=== PATIENT | male | born 1960 | race Caucasian/White ===

== ENCOUNTER 2022-04-13 09:41 | Inpatient (IN) | payer OTHER ==
[2022-04-13 10:10] VITALS: BMI 24.2
[2022-04-13] MEDS ORDERED: LORazepam 1 MG TABLET PO PRN (10:50)
[2022-04-13] MEDS ORDERED: MAG HYDROX/AL HYDROX/SIMETH 30 ML UNIT-DOSE CUP PO PRN (10:50)
[2022-04-13] MEDS ORDERED: DICYCLOMINE HCL 10 MG CAPSULE PO PRN (10:50)
[2022-04-13] MEDS ORDERED: LORazepam 2 MG TABLET PO ONE (10:50)
[2022-04-13] MEDS ORDERED: BISMUTH SUBSALICYLATE 524 MG/30 ML PO PRN (10:50)
[2022-04-13] MEDS ORDERED: MAGNESIUM CITRATE 300 ML BOTTLE PO PRN (10:50)
[2022-04-13] MEDS ORDERED: MAGNESIUM HYDROX 2400MG/30ML ORAL SUSPENSION 30 ML CUP PO PRN (10:50)
[2022-04-13] MEDS ORDERED: NALOXONE HCL (KLOXXADO) 8 MG SPRAY NS PRN (10:50)
[2022-04-13] MEDS ORDERED: BENZOCAINE/MENTHOL (CHLORASEPTIC ) LOZENGE MM PRN (10:50)
[2022-04-13] MEDS ORDERED: ACETAMINOPHEN 325 MG TABLET (FP) PO PRN ×2 (10:50)
[2022-04-13] MEDS ORDERED: ONDANSETRON *ODT* 4 MG TABLET SL PRN (10:50)
[2022-04-13] MEDS ORDERED: METHOCARBAMOL 500 MG TABLET PO PRN (10:50)
[2022-04-13] MEDS ORDERED: NICOTINE 10 MG CARTRIDGE (INHALER) IH PRN (10:50)
[2022-04-13] MEDS ORDERED: metFORMIN HCL 500 MG TABLET (FP) PO ONE (14:36)
[2022-04-13] MEDS ORDERED: LISINOPRIL 10 MG TABLET PO ONE (14:37)
[2022-04-13] MEDS ORDERED: LORazepam 1 MG TABLET PO ONE (14:44)
[2022-04-13] MEDS: PANTOPRAZOLE 40 MG TABLET PO SCH (14:54)
[2022-04-13] MEDS: NICOTINE 21 MG/24 HOURS TOPICAL PATCH TD SCH (14:57)
[2022-04-13] MEDS: metFORMIN HCL 500 MG TABLET (FP) PO SCH (14:57)
[2022-04-13] MEDS: LISINOPRIL 10 MG TABLET PO SCH (14:57)
[2022-04-13] MEDS: INSULIN SLIDING SCALE (NOVOLOG) 1 VIAL SQ SCH ×2 (14:58→18:05)
[2022-04-13] MEDS ORDERED: INSULIN SLIDING SCALE (NOVOLOG) 1 VIAL SQ ONE (15:01)
[2022-04-13] MEDS: LORazepam 2 MG TABLET PO SCH ×2 (18:06→22:16)
[2022-04-13] MEDS ORDERED: MELATONIN 5 MG TABLETS PO SCH (22:00)
[2022-04-13] MEDS: ATORVASTATIN CA 20 MG TABLET (FP) PO SCH (22:14)
[2022-04-13] MEDS: THIAMINE HCL 100 MG TABLET (FP) PO SCH (22:14)
[2022-04-13] MEDS: traZODone HCL 50 MG TABLET (FP) PO SCH (22:14)
[2022-04-14] MEDS: LORazepam 2 MG TABLET PO SCH ×4 (05:26→22:30)
[2022-04-14] MEDS: INSULIN SLIDING SCALE (NOVOLOG) 1 VIAL SQ SCH ×3 (06:46→17:09)
[2022-04-14] MEDS: PRENATAL VITAMINS W/ FOLIC ACID TABLET (FP) PO SCH (10:38)
[2022-04-14] MEDS: PANTOPRAZOLE 40 MG TABLET PO SCH (10:38)
[2022-04-14] MEDS: LISINOPRIL 10 MG TABLET PO SCH (10:38)
[2022-04-14] MEDS: metFORMIN HCL 500 MG TABLET (FP) PO SCH (10:38)
[2022-04-14] MEDS: SERTRALINE HCL 50 MG TABLET (FP) PO SCH (10:38)
[2022-04-14] MEDS: NICOTINE 21 MG/24 HOURS TOPICAL PATCH TD SCH (10:39)
[2022-04-14 12:03] LABS: BLOOD UREA NITROGEN 15.8 mg/dL (7-18); CALCIUM 8.2 mg/dL (8.5-10.1)
[2022-04-14 12:07] LABS: BILIRUBIN,TOTAL 1.2 mg/dL (0.2-1); CREATININE 0.9 mg/dL (0.55-1.3); TOT PROT 5.5 g/dl (6.4-8.2)
[2022-04-14 12:32] LABS: HEMATOCRIT 35.8 % (35.4-49); HEMOGLOBIN 11.9 GM/dL (11.7-16.9); MCH 31.6 pg (25.7-33.7); MCHC 33.3 g/dl (32.0-35.9); MEAN CELL VOLUME 94.8 fl (80-96); PLATELET COUNT 180 10^3/uL (134-434); RBC 3.77 M/mm3 (4.00-5.60); RDW 13.2 % (11.9-15.9); WHITE BLOOD COUNT 3.6 K/mm3 (4.0-10.0)
[2022-04-14] MEDS: ATORVASTATIN CA 20 MG TABLET (FP) PO SCH (22:30)
[2022-04-14] MEDS: THIAMINE HCL 100 MG TABLET (FP) PO SCH (22:30)
[2022-04-14] MEDS: traZODone HCL 50 MG TABLET (FP) PO SCH (22:30)
[2022-04-15] MEDS: LORazepam 1 MG TABLET PO SCH ×4 (05:44→22:14)
[2022-04-15] MEDS: INSULIN SLIDING SCALE (NOVOLOG) 1 VIAL SQ SCH ×3 (06:31→16:37)
[2022-04-15] MEDS: PANTOPRAZOLE 40 MG TABLET PO SCH (10:21)
[2022-04-15] MEDS: SERTRALINE HCL 50 MG TABLET (FP) PO SCH (10:21)
[2022-04-15] MEDS: LISINOPRIL 10 MG TABLET PO SCH (10:21)
[2022-04-15] MEDS: PRENATAL VITAMINS W/ FOLIC ACID TABLET (FP) PO SCH (10:21)
[2022-04-15] MEDS: NICOTINE 21 MG/24 HOURS TOPICAL PATCH TD SCH (10:22)
[2022-04-15] MEDS: metFORMIN HCL 500 MG TABLET (FP) PO SCH ×2 (10:34→18:19)
[2022-04-15] MEDS: traZODone HCL 50 MG TABLET (FP) PO SCH (22:13)
[2022-04-15] MEDS: THIAMINE HCL 100 MG TABLET (FP) PO SCH (22:14)
[2022-04-15] MEDS: ATORVASTATIN CA 20 MG TABLET (FP) PO SCH (22:14)
[2022-04-15] MEDS: LOPERAMIDE HCL 2 MG CAPSULE PO PRN (22:16)
[2022-04-16] MEDS ORDERED: LORazepam 0.5 MG TABLET PO PRN
[2022-04-16] MEDS: LOPERAMIDE HCL 2 MG CAPSULE PO PRN ×2 (04:16→10:36)
[2022-04-16] MEDS: LORazepam 0.5 MG TABLET PO SCH ×4 (05:55→22:07)
[2022-04-16] MEDS: INSULIN SLIDING SCALE (NOVOLOG) 1 VIAL SQ SCH ×3 (06:11→17:22)
[2022-04-16] MEDS: metFORMIN HCL 500 MG TABLET (FP) PO SCH ×2 (06:12→17:50)
[2022-04-16] MEDS ORDERED: INSULIN SLIDING SCALE (NOVOLOG) 1 VIAL SQ ONE (06:27)
[2022-04-16] MEDS: PRENATAL VITAMINS W/ FOLIC ACID TABLET (FP) PO SCH (10:34)
[2022-04-16] MEDS: LISINOPRIL 10 MG TABLET PO SCH (10:34)
[2022-04-16] MEDS: PANTOPRAZOLE 40 MG TABLET PO SCH (10:34)
[2022-04-16] MEDS: SERTRALINE HCL 50 MG TABLET (FP) PO SCH (10:34)
[2022-04-16] MEDS: NICOTINE 21 MG/24 HOURS TOPICAL PATCH TD SCH (10:36)
[2022-04-16 11:08] LABS: URINE APPEARANCE CLEAR; URINE BILIRUBIN NEGATIVE (NEGATIVE); URINE COLOR YELLOW; URINE GLUCOSE (UA) 3+ (NEGATIVE); URINE KETONE NEGATIVE (NEGATIVE); URINE LEUK ESTERASE NEGATIVE (NEGATIVE); URINE NITRITE NEGATIVE (NEGATIVE); URINE PROTEIN NEGATIVE (NEGATIVE); URINE UROBILINOGEN 0.2 mg/dL (0.2-1.0)
[2022-04-16] MEDS: THIAMINE HCL 100 MG TABLET (FP) PO SCH (22:06)
[2022-04-16] MEDS: ATORVASTATIN CA 20 MG TABLET (FP) PO SCH (22:06)
[2022-04-16] MEDS: traZODone HCL 50 MG TABLET (FP) PO SCH (22:06)
[2022-04-17] MEDS ORDERED: LORazepam 0.5 MG TABLET PO ONE (05:00)
[2022-04-17] MEDS: metFORMIN HCL 500 MG TABLET (FP) PO SCH ×2 (06:19→17:44)
[2022-04-17] MEDS: INSULIN SLIDING SCALE (NOVOLOG) 1 VIAL SQ SCH ×4 (06:20→23:10)
[2022-04-17] MEDS: SERTRALINE HCL 50 MG TABLET (FP) PO SCH (11:25)
[2022-04-17] MEDS: PRENATAL VITAMINS W/ FOLIC ACID TABLET (FP) PO SCH (11:26)
[2022-04-17] MEDS: NICOTINE 21 MG/24 HOURS TOPICAL PATCH TD SCH (11:26)
[2022-04-17] MEDS: PANTOPRAZOLE 40 MG TABLET PO SCH (11:26)
[2022-04-17] MEDS: LISINOPRIL 10 MG TABLET PO SCH (11:26)
[2022-04-17 13:00] VITALS: TEMP 97.5
[2022-04-17 14:21] VITALS: BP 113/74; PULSE 119; RESP 20
[2022-04-17] MEDS: traZODone HCL 50 MG TABLET (FP) PO SCH (23:10)
[2022-04-17] MEDS: ATORVASTATIN CA 20 MG TABLET (FP) PO SCH (23:10)
[2022-04-17] MEDS: THIAMINE HCL 100 MG TABLET (FP) PO SCH (23:11)
== END 2022-04-17 14:45 | disposition short-term general hospital (02) | DRG 775 ==
LOC: YASAS 09:41 → Y3N 12:31
PROVIDERS: ADMIT Allergy & Immunology; ATTEND Surgery
PROC: HZ2ZZZZ Detoxification Services for Substance Abuse Treatment (ICD-10-PCS; principal; 2022-04-13)
DX: F10.230 Alcohol dependence with withdrawal, uncomplicated (principal); F19.280 Other psychoactive substance dependence with psychoactive substance-induced anxiety disorder; F19.282 Other psychoactive substance dependence with psychoactive substance-induced sleep disorder; F19.24 Other psychoactive substance dependence with psychoactive substance-induced mood disorder; F17.210 Nicotine dependence, cigarettes, uncomplicated; F41.9 Anxiety disorder, unspecified; E11.65 Type 2 diabetes mellitus with hyperglycemia; Z79.84 Long term (current) use of oral hypoglycemic drugs; E78.5 Hyperlipidemia, unspecified; I10 Essential (primary) hypertension; K21.9 Gastro-esophageal reflux disease without esophagitis; I95.1 Orthostatic hypotension; M06.9 Rheumatoid arthritis, unspecified; M25.562 Pain in left knee; M54.50 Low back pain, unspecified; G89.29 Other chronic pain; R42 Dizziness and giddiness
CPT/HCPCS: 36415; 80053; 81003; 82962; 85027; 86780; 87811; 93005; 93010; C9803-CS; U0003; U0005

== ENCOUNTER 2022-04-17 15:12 | Emergency (ER) | payer OTHER ==
[2022-04-17 15:32] VITALS: RESP 19; BMI 23.8
[2022-04-17] MEDS ORDERED: SODIUM CHLORIDE 1,000 ML IV STA (16:37)
[2022-04-17 18:10] LABS: BASO % 0.1 % (0-2.0); EOS % 1.3 % (0-4.5); HEMATOCRIT 37.2 % (35.4-49); HEMOGLOBIN 12.9 GM/dL (11.7-16.9); LYMPH % 11.4 % (8-40); MCH 32.7 pg (25.7-33.7); MCHC 34.6 g/dl (32.0-35.9); MEAN CELL VOLUME 94.5 fl (80-96); MEAN PLT VOLUME 8.1 fl (7.5-11.1); MONO % 9.6 % (3.8-10.2); NEUT % 77.6 % (42.8-82.8); PLATELET COUNT 148 10^3/uL (134-434); RBC 3.94 M/mm3 (4.00-5.60); RDW 13.4 % (11.9-15.9); WHITE BLOOD COUNT 6.6 K/mm3 (4.0-10.0)
[2022-04-17 18:17] LABS: INR 0.93 (0.83-1.09); PROTHROMBIN TIME (PATIENT) 10.7 SEC (9.7-13.0)
[2022-04-17 18:20] LABS: ACTIVATED PTT 30.2 SECONDS (25.2-36.5)
[2022-04-17 18:36] LABS: ALBUMIN 3.4 g/dl (3.4-5.0); BLOOD UREA NITROGEN 14.4 mg/dL (7-18)
[2022-04-17 18:39] LABS: CREATININE 1.1 mg/dL (0.55-1.3)
[2022-04-17 18:41] LABS: BILIRUBIN,TOTAL 0.2 mg/dL (0.2-1); TOT PROT 6.5 g/dl (6.4-8.2)
[2022-04-17 18:43] LABS: CALCIUM 10.5 mg/dL (8.5-10.1)
[2022-04-17 19:46] VITALS: BP 160/97; PULSE 71; TEMP 98
== END 2022-04-17 20:14 | disposition short-term general hospital (02) ==
LOC: JER 15:12
PROC: 3E0337Z Introduction of Electrolytic and Water Balance Substance into Peripheral Vein, Percutaneous Approach (ICD-10-PCS; principal; 2022-04-17)
DX: R42 Dizziness and giddiness (principal)
CPT/HCPCS: 36415; 71046-TC-FY; 80053; 84484; 85025; 85610; 85730; 93005; 93010; 99285-25

== ENCOUNTER 2023-05-03 09:39 | Inpatient (IN) | payer OTHER ==
[2023-05-03 10:46] VITALS: BMI 25.4
[2023-05-03] MEDS ORDERED: BENZONATATE 200 MG CAPSULE PO PRN (11:24)
[2023-05-03] MEDS ORDERED: MAG HYDROX/AL HYDROX/SIMETH 30 ML UNIT-DOSE CUP PO PRN (11:24)
[2023-05-03] MEDS ORDERED: NICOTINE POLACRILEX 2 MG GUM BUC PRN (11:24)
[2023-05-03] MEDS ORDERED: BISMUTH SUBSALICYLATE 524 MG/30 ML PO PRN (11:24)
[2023-05-03] MEDS ORDERED: guaiFENesin 600 MG TABLET.ER (FP) PO PRN (11:24)
[2023-05-03] MEDS ORDERED: ONDANSETRON *ODT* 4 MG TABLET SL PRN (11:24)
[2023-05-03] MEDS ORDERED: MAGNESIUM HYDROX 2400MG/30ML ORAL SUSPENSION 30 ML CUP PO PRN (11:24)
[2023-05-03] MEDS ORDERED: DICYCLOMINE HCL 10 MG CAPSULE PO PRN (11:24)
[2023-05-03] MEDS ORDERED: ACETAMINOPHEN 325 MG TABLET (FP) PO PRN (11:24)
[2023-05-03] MEDS ORDERED: BENZOCAINE/MENTHOL (CHLORASEPTIC ) LOZENGE MM PRN (11:24)
[2023-05-03] MEDS ORDERED: POLYETHYLENE GLYCOL (HEALTHYLAX) 3350 17 GM PACKET PO PRN (11:24)
[2023-05-03] MEDS ORDERED: NALOXONE HCL 0.4 MG/ML VIAL IM PRN (11:24)
[2023-05-03] MEDS ORDERED: NALOXONE HCL (KLOXXADO) 8 MG SPRAY NS PRN (11:24)
[2023-05-03] MEDS ORDERED: LOPERAMIDE HCL 2 MG CAPSULE PO PRN (11:24)
[2023-05-03] MEDS ORDERED: chlordiazePOXIDE HCL 25 MG CAPSULE PO ONE (11:24)
[2023-05-03] MEDS ORDERED: ARTIFICIAL TEARS (POLYVINYL ALCOHOL) OPTH DROPS OU PRN (11:27)
[2023-05-03] MEDS ORDERED: PANTOPRAZOLE 40 MG TABLET PO SCH (12:00)
[2023-05-03] MEDS ORDERED: chlordiazePOXIDE HCL 25 MG CAPSULE ONE (12:16)
[2023-05-03] MEDS ORDERED: METHOCARBAMOL 500 MG TABLET ONE (12:17)
[2023-05-03] MEDS ORDERED: LISINOPRIL 10 MG TABLET ONE (12:17)
[2023-05-03] MEDS: METHOCARBAMOL 500 MG TABLET PO PRN ×2 (12:20→22:31)
[2023-05-03] MEDS: LISINOPRIL 10 MG TABLET PO SCH (12:20)
[2023-05-03] MEDS ORDERED: NICOTINE 14 MG/24 HOURS TOPICAL PATCH TD ONE (12:44)
[2023-05-03] MEDS: NICOTINE 14 MG/24 HOURS TOPICAL PATCH TD SCH (12:47)
[2023-05-03] MEDS: PANTOPRAZOLE 40 MG TABLET PO SCH (13:01)
[2023-05-03] MEDS: LIDOCAINE 5% TOPICAL PATCH TP SCH (13:05)
[2023-05-03] MEDS: INSULIN SLIDING SCALE (NOVOLOG) 1 VIAL SQ SCH ×2 (16:49→22:28)
[2023-05-03] MEDS: metFORMIN HCL 500 MG TABLET (FP) PO SCH (16:56)
[2023-05-03] MEDS: chlordiazePOXIDE HCL 25 MG CAPSULE PO SCH ×2 (16:56→22:30)
[2023-05-03] MEDS: chlordiazePOXIDE HCL 25 MG CAPSULE PO PRN (19:02)
[2023-05-03] MEDS ORDERED: MELATONIN 5 MG TABLETS PO SCH (22:00)
[2023-05-03] MEDS: THIAMINE HCL 100 MG TABLET (FP) PO SCH (22:29)
[2023-05-03] MEDS: LIDOCAINE PATCH REMOVAL MC SCH (22:30)
[2023-05-03] MEDS: ATORVASTATIN CA 20 MG TABLET (FP) PO SCH (22:30)
[2023-05-03] MEDS ORDERED: INSULIN (NOVOLOG) ASPART 100 UNITS/ML 10ML VIAL ONE (22:51)
[2023-05-04] MEDS: chlordiazePOXIDE HCL 25 MG CAPSULE PO SCH ×4 (05:50→22:04)
[2023-05-04] MEDS: metFORMIN HCL 500 MG TABLET (FP) PO SCH ×2 (06:06→17:23)
[2023-05-04] MEDS: INSULIN SLIDING SCALE (NOVOLOG) 1 VIAL SQ SCH ×4 (06:44→22:03)
[2023-05-04] MEDS: IBUPROFEN 400 MG TABLET (FP) PO PRN ×2 (06:45→15:20)
[2023-05-04] MEDS: METHOCARBAMOL 500 MG TABLET PO PRN ×3 (06:45→19:05)
[2023-05-04] MEDS: LIDOCAINE 5% TOPICAL PATCH TP SCH (10:11)
[2023-05-04] MEDS: NICOTINE 14 MG/24 HOURS TOPICAL PATCH TD SCH (10:12)
[2023-05-04] MEDS: PANTOPRAZOLE 40 MG TABLET PO SCH (10:12)
[2023-05-04] MEDS: PRENATAL VITAMINS W/ FOLIC ACID TABLET (FP) PO SCH (10:12)
[2023-05-04] MEDS: SERTRALINE HCL 50 MG TABLET (FP) PO SCH (10:12)
[2023-05-04] MEDS: LISINOPRIL 10 MG TABLET PO SCH (10:12)
[2023-05-04] MEDS ORDERED: INSULIN (NOVOLOG) ASPART 100 UNITS/ML 10ML VIAL ONE ×2 (11:43→21:44)
[2023-05-04] MEDS: chlordiazePOXIDE HCL 25 MG CAPSULE PO PRN (15:20)
[2023-05-04] MEDS: ATORVASTATIN CA 20 MG TABLET (FP) PO SCH (22:03)
[2023-05-04] MEDS: THIAMINE HCL 100 MG TABLET (FP) PO SCH (22:04)
[2023-05-04] MEDS: LIDOCAINE PATCH REMOVAL MC SCH (22:04)
[2023-05-04] MEDS: traZODone HCL 50 MG TABLET (FP) PO SCH (22:04)
[2023-05-05] MEDS: chlordiazePOXIDE HCL 25 MG CAPSULE PO SCH ×4 (05:08→22:23)
[2023-05-05] MEDS: METHOCARBAMOL 500 MG TABLET PO PRN ×3 (05:12→17:24)
[2023-05-05] MEDS: metFORMIN HCL 500 MG TABLET (FP) PO SCH ×2 (06:09→17:22)
[2023-05-05] MEDS ORDERED: INSULIN (NOVOLOG) ASPART 100 UNITS/ML 10ML VIAL ONE ×3 (06:13→20:30)
[2023-05-05] MEDS: INSULIN SLIDING SCALE (NOVOLOG) 1 VIAL SQ SCH ×4 (06:13→22:21)
[2023-05-05] MEDS: PRENATAL VITAMINS W/ FOLIC ACID TABLET (FP) PO SCH (10:29)
[2023-05-05] MEDS: LISINOPRIL 10 MG TABLET PO SCH (10:30)
[2023-05-05] MEDS: LIDOCAINE 5% TOPICAL PATCH TP SCH (10:33)
[2023-05-05] MEDS: NICOTINE 14 MG/24 HOURS TOPICAL PATCH TD SCH (10:33)
[2023-05-05] MEDS: SERTRALINE HCL 50 MG TABLET (FP) PO SCH (10:33)
[2023-05-05] MEDS: PANTOPRAZOLE 40 MG TABLET PO SCH (10:34)
[2023-05-05] MEDS: ATORVASTATIN CA 20 MG TABLET (FP) PO SCH (22:22)
[2023-05-05] MEDS: LIDOCAINE PATCH REMOVAL MC SCH (22:22)
[2023-05-05] MEDS: traZODone HCL 50 MG TABLET (FP) PO SCH (22:24)
[2023-05-05] MEDS: THIAMINE HCL 100 MG TABLET (FP) PO SCH (22:24)
[2023-05-05] MEDS: IBUPROFEN 400 MG TABLET (FP) PO PRN (22:25)
[2023-05-06] MEDS ORDERED: chlordiazePOXIDE HCL 10 MG CAPSULE PO PRN
[2023-05-06] MEDS: chlordiazePOXIDE HCL 10 MG CAPSULE PO SCH ×4 (05:53→22:13)
[2023-05-06] MEDS: METHOCARBAMOL 500 MG TABLET PO PRN ×3 (05:58→22:18)
[2023-05-06] MEDS: metFORMIN HCL 500 MG TABLET (FP) PO SCH ×2 (07:27→16:41)
[2023-05-06] MEDS: INSULIN SLIDING SCALE (NOVOLOG) 1 VIAL SQ SCH ×4 (07:27→22:13)
[2023-05-06] MEDS: PRENATAL VITAMINS W/ FOLIC ACID TABLET (FP) PO SCH (10:26)
[2023-05-06] MEDS: LIDOCAINE 5% TOPICAL PATCH TP SCH (10:26)
[2023-05-06] MEDS: PANTOPRAZOLE 40 MG TABLET PO SCH (10:26)
[2023-05-06] MEDS: LISINOPRIL 10 MG TABLET PO SCH (10:27)
[2023-05-06] MEDS: NICOTINE 14 MG/24 HOURS TOPICAL PATCH TD SCH (10:27)
[2023-05-06] MEDS: SERTRALINE HCL 50 MG TABLET (FP) PO SCH (10:27)
[2023-05-06] MEDS: IBUPROFEN 400 MG TABLET (FP) PO PRN (10:31)
[2023-05-06] MEDS ORDERED: INSULIN (NOVOLOG) ASPART 100 UNITS/ML 10ML VIAL ONE (16:40)
[2023-05-06] MEDS: ATORVASTATIN CA 20 MG TABLET (FP) PO SCH (22:13)
[2023-05-06] MEDS: THIAMINE HCL 100 MG TABLET (FP) PO SCH (22:13)
[2023-05-06] MEDS: LIDOCAINE PATCH REMOVAL MC SCH (22:13)
[2023-05-06] MEDS: traZODone HCL 50 MG TABLET (FP) PO SCH (22:13)
[2023-05-07] MEDS: chlordiazePOXIDE HCL 10 MG CAPSULE PO SCH ×2 (05:51→17:35)
[2023-05-07] MEDS: metFORMIN HCL 500 MG TABLET (FP) PO SCH ×2 (06:13→17:00)
[2023-05-07] MEDS: INSULIN SLIDING SCALE (NOVOLOG) 1 VIAL SQ SCH ×4 (06:36→22:11)
[2023-05-07] MEDS: NICOTINE 14 MG/24 HOURS TOPICAL PATCH TD SCH (09:38)
[2023-05-07] MEDS: PRENATAL VITAMINS W/ FOLIC ACID TABLET (FP) PO SCH (09:38)
[2023-05-07] MEDS: LIDOCAINE 5% TOPICAL PATCH TP SCH (09:38)
[2023-05-07] MEDS: PANTOPRAZOLE 40 MG TABLET PO SCH (09:38)
[2023-05-07] MEDS: LISINOPRIL 10 MG TABLET PO SCH (09:38)
[2023-05-07] MEDS: SERTRALINE HCL 50 MG TABLET (FP) PO SCH (09:38)
[2023-05-07 11:00] LABS: HEMATOCRIT 38.2 % (35.4-49); MCH 32.1 pg (25.7-33.7); MCHC 34.1 g/dl (32.0-35.9); MEAN CELL VOLUME 93.9 fl (80-96); MEAN PLT VOLUME 8.4 fl (7.5-11.1); PLATELET COUNT 155 10^3/uL (134-434); RBC 4.06 M/mm3 (4.00-5.60); RDW 14.6 % (11.9-15.9); WHITE BLOOD COUNT 5.7 K/mm3 (4.0-10.0)
[2023-05-07 11:11] LABS: ALBUMIN 3.3 g/dl (3.4-5.0); BLOOD UREA NITROGEN 13.9 mg/dL (7-18); CALCIUM 9.8 mg/dL (8.5-10.1)
[2023-05-07 11:15] LABS: BILIRUBIN,TOTAL 0.3 mg/dL (0.2-1)
[2023-05-07 11:16] LABS: TOT PROT 6.5 g/dl (6.4-8.2)
[2023-05-07] MEDS: METHOCARBAMOL 500 MG TABLET PO PRN (15:24)
[2023-05-07] MEDS ORDERED: INSULIN (NOVOLOG) ASPART 100 UNITS/ML 10ML VIAL ONE (17:09)
[2023-05-07] MEDS: IBUPROFEN 400 MG TABLET (FP) PO PRN (17:39)
[2023-05-07] MEDS: THIAMINE HCL 100 MG TABLET (FP) PO SCH (22:12)
[2023-05-07] MEDS: traZODone HCL 50 MG TABLET (FP) PO SCH (22:12)
[2023-05-07] MEDS: LIDOCAINE PATCH REMOVAL MC SCH (22:12)
[2023-05-07] MEDS: ATORVASTATIN CA 20 MG TABLET (FP) PO SCH (22:12)
[2023-05-08] MEDS ORDERED: chlordiazePOXIDE HCL 10 MG CAPSULE PO ONE (05:00)
[2023-05-08] MEDS: METHOCARBAMOL 500 MG TABLET PO PRN (05:25)
[2023-05-08] MEDS: metFORMIN HCL 500 MG TABLET (FP) PO SCH (06:47)
[2023-05-08] MEDS: INSULIN SLIDING SCALE (NOVOLOG) 1 VIAL SQ SCH ×2 (06:52→11:47)
[2023-05-08] MEDS: PANTOPRAZOLE 40 MG TABLET PO SCH (09:19)
[2023-05-08] MEDS: LISINOPRIL 10 MG TABLET PO SCH (09:19)
[2023-05-08] MEDS: LIDOCAINE 5% TOPICAL PATCH TP SCH (09:19)
[2023-05-08] MEDS: PRENATAL VITAMINS W/ FOLIC ACID TABLET (FP) PO SCH (09:19)
[2023-05-08] MEDS: SERTRALINE HCL 50 MG TABLET (FP) PO SCH (09:19)
[2023-05-08] MEDS: NICOTINE 14 MG/24 HOURS TOPICAL PATCH TD SCH (09:20)
[2023-05-08 09:53] VITALS: RESP 18
[2023-05-08 13:37] VITALS: BP 138/82; PULSE 94; TEMP 96.9
== END 2023-05-08 13:30 | disposition home or self-care (01) | DRG 897 ==
LOC: YASAS 09:39 → Y6N 12:15
PROVIDERS: ADMIT Allergy & Immunology; ATTEND Surgery
PROC: HZ2ZZZZ Detoxification Services for Substance Abuse Treatment (ICD-10-PCS; principal; 2023-05-03)
DX: F10.230 Alcohol dependence with withdrawal, uncomplicated (principal); F10.282 Alcohol dependence with alcohol-induced sleep disorder; F10.24 Alcohol dependence with alcohol-induced mood disorder; F32.9 Major depressive disorder, single episode, unspecified; E78.5 Hyperlipidemia, unspecified; I10 Essential (primary) hypertension; K21.9 Gastro-esophageal reflux disease without esophagitis; E11.9 Type 2 diabetes mellitus without complications; Z79.84 Long term (current) use of oral hypoglycemic drugs; M06.9 Rheumatoid arthritis, unspecified; M54.50 Low back pain, unspecified; G89.29 Other chronic pain; Z87.19 Personal history of other diseases of the digestive system
CPT/HCPCS: 36415; 72131-TC; 74176-TC; 80053; 81003; 82962; 84484; 85025; 85027; 86780; 87086; 87635; 93005; 93010

== ENCOUNTER 2024-03-27 11:41 | Inpatient (IN) | payer OTHER ==
[2024-03-27 12:09] VITALS: BMI 23.6
[2024-03-27] MEDS ORDERED: POLYETHYLENE GLYCOL (HEALTHYLAX) 3350 17 GM PACKET PO PRN (13:15)
[2024-03-27] MEDS ORDERED: LOPERAMIDE HCL 2 MG CAPSULE PO PRN (13:15)
[2024-03-27] MEDS ORDERED: NALOXONE (NARCAN) HCL 4 MG/0.1 ML SPRAY NS PRN (13:15)
[2024-03-27] MEDS ORDERED: DICYCLOMINE HCL 10 MG CAPSULE PO PRN (13:15)
[2024-03-27] MEDS ORDERED: NICOTINE POLACRILEX 2 MG LOZENGE BC PRN (13:15)
[2024-03-27] MEDS ORDERED: ONDANSETRON *ODT* 4 MG TABLET SL PRN (13:15)
[2024-03-27] MEDS ORDERED: NICOTINE POLACRILEX 2 MG GUM BUC PRN (13:15)
[2024-03-27] MEDS ORDERED: BENZONATATE 200 MG CAPSULE PO PRN (13:15)
[2024-03-27] MEDS ORDERED: BENZOCAINE/MENTHOL (CHLORASEPTIC ) LOZENGE MM PRN (13:15)
[2024-03-27] MEDS ORDERED: guaiFENesin 600 MG TABLET.ER (FP) PO PRN (13:15)
[2024-03-27] MEDS ORDERED: MAG HYDROX/AL HYDROX/SIMETH 30 ML UNIT-DOSE CUP PO PRN (13:15)
[2024-03-27] MEDS ORDERED: MAGNESIUM HYDROX 2400MG/30ML ORAL SUSPENSION 30 ML CUP PO PRN (13:15)
[2024-03-27] MEDS ORDERED: BISMUTH SUBSALICYLATE 524 MG/30 ML PO PRN (13:15)
[2024-03-27] MEDS: NALOXONE (NYS OPIOID OVERDOSE PROGRAM) 4 MG/0.1 ML SPRAY NS ONE (13:34)
[2024-03-27] MEDS ORDERED: LISINOPRIL 10 MG TABLET ONE (13:37)
[2024-03-27] MEDS: LISINOPRIL 10 MG TABLET PO SCH (13:38)
[2024-03-27] MEDS: PANTOPRAZOLE 40 MG TABLET PO SCH (14:00)
[2024-03-27] MEDS: chlordiazePOXIDE HCL 25 MG CAPSULE PO PRN (14:06)
[2024-03-27] MEDS: chlordiazePOXIDE HCL 25 MG CAPSULE PO SCH (16:46)
[2024-03-27] MEDS: INSULIN ASPART SLIDING SCALE (NOVOLOG) 1 VIAL SQ SCH (16:47)
[2024-03-27] MEDS: metFORMIN HCL 500 MG TABLET (FP) PO SCH (21:23)
[2024-03-27] MEDS: ATORVASTATIN CA 20 MG TABLET (FP) PO SCH (22:44)
[2024-03-27] MEDS: THIAMINE 100 MG TABLET PO SCH (22:44)
[2024-03-27] MEDS: MELATONIN 5 MG TABLETS PO SCH (22:44)
[2024-03-28] MEDS ORDERED: SERTRALINE HCL 50 MG TABLET (FP) PO SCH (10:15)
[2024-03-28 10:24] LABS: HEMATOCRIT 43.8 % (35.4-49); HEMOGLOBIN 14.6 GM/dL (11.7-16.9); MCH 33.8 pg (25.7-33.7); MCHC 33.3 g/dl (32.0-35.9); MEAN CELL VOLUME 101.5 fl (80-96); MEAN PLT VOLUME 8.2 fl (7.5-11.1); PLATELET COUNT 213 10^3/uL (134-434); RBC 4.32 M/mm3 (4.00-5.60); RDW 13.5 % (11.9-15.9); WHITE BLOOD COUNT 4.6 K/mm3 (4.0-10.0)
[2024-03-28] MEDS: SERTRALINE HCL 50 MG TABLET (FP) PO SCH (10:38)
[2024-03-28] MEDS: PRENATAL VITAMINS W/ FOLIC ACID TABLET (FP) PO SCH (10:39)
[2024-03-28 11:29] LABS: CHLORIDE 100 mmol/L (98-107); POTASSIUM 3.8 mmol/L (3.5-5.1); SODIUM 136 mmol/L (136-145)
[2024-03-28 11:40] LABS: ALBUMIN 3.8 g/dl (3.4-5.0); ANION GAP 10 mmol/L (4-13); BLOOD UREA NITROGEN 9.3 mg/dL (7-18); CALCIUM 9.3 mg/dL (8.5-10.1); CO2 26 mmol/L (21-32); GLUCOSE,RANDOM 210 mg/dL (74-106)
[2024-03-28 11:43] LABS: CREATININE 0.9 mg/dL (0.55-1.3); SGOT/AST 107 U/L (15-37); SGPT/ALT 58 U/L (13-61)
[2024-03-28 11:45] LABS: BILIRUBIN,TOTAL 1.3 mg/dL (0.2-1)
[2024-03-28 11:46] LABS: ALK PHOS 127 U/L (45-117)
[2024-03-28] MEDS: INSULIN ASPART SLIDING SCALE (NOVOLOG) 1 VIAL SQ SCH (16:37)
[2024-03-28] MEDS: metFORMIN HCL 500 MG TABLET (FP) PO SCH (17:12)
[2024-03-28] MEDS ORDERED: INSULIN (LEVEMIR) 100 UNITS/ML UNITS SQ SCH (22:00)
[2024-03-28] MEDS: traZODone HCL 50 MG TABLET (FP) PO SCH (22:24)
[2024-03-28] MEDS: INSULIN (LEVEMIR) 100 UNITS/ML UNITS SQ SCH (22:26)
[2024-03-29] MEDS: METHOCARBAMOL 500 MG TABLET PO PRN (05:59)
[2024-03-29] MEDS: chlordiazePOXIDE HCL 25 MG CAPSULE PO SCH (06:00)
[2024-03-29] MEDS ORDERED: NALOXONE (NYS OPIOID OVERDOSE PROGRAM) 4 MG/0.1 ML SPRAY NS PRN (14:02)
[2024-03-30] MEDS ORDERED: chlordiazePOXIDE HCL 10 MG CAPSULE PO PRN
[2024-03-30] MEDS: chlordiazePOXIDE HCL 10 MG CAPSULE PO SCH (05:40)
[2024-03-30] MEDS: INSULIN (LEVEMIR) 100 UNITS/ML UNITS SQ SCH (22:19)
[2024-03-31] MEDS: chlordiazePOXIDE HCL 10 MG CAPSULE PO SCH (05:46)
[2024-03-31] MEDS: ACETAMINOPHEN 325 MG TABLET (FP) PO PRN (05:48)
[2024-04-01] MEDS: chlordiazePOXIDE HCL 10 MG CAPSULE PO ONE (05:49)
[2024-04-01] MEDS: NALTREXONE HCL 50 MG TABLET PO SCH (09:01)
[2024-04-01 09:25] VITALS: RESP 18
[2024-04-01 13:11] VITALS: BP 123/81; PULSE 92; TEMP 97.5
== END 2024-04-01 13:25 | disposition other institution (70) | DRG 897 ==
LOC: YASAS 11:41 → Y3N 13:08
PROVIDERS: ADMIT Surgery; ATTEND Surgery
PROC: HZ2ZZZZ Detoxification Services for Substance Abuse Treatment (ICD-10-PCS; principal; 2024-03-27)
DX: F10.230 Alcohol dependence with withdrawal, uncomplicated (principal); F19.280 Other psychoactive substance dependence with psychoactive substance-induced anxiety disorder; F19.282 Other psychoactive substance dependence with psychoactive substance-induced sleep disorder; F10.24 Alcohol dependence with alcohol-induced mood disorder; F32.A Depression, unspecified; E78.5 Hyperlipidemia, unspecified; I10 Essential (primary) hypertension; K21.9 Gastro-esophageal reflux disease without esophagitis; E11.9 Type 2 diabetes mellitus without complications; Z79.84 Long term (current) use of oral hypoglycemic drugs; M06.9 Rheumatoid arthritis, unspecified; M25.561 Pain in right knee; M54.50 Low back pain, unspecified; G89.29 Other chronic pain; Z62.810 Personal history of physical and sexual abuse in childhood; Z91.410 Personal history of adult physical and sexual abuse; Z63.0 Problems in relationship with spouse or partner; Z63.8 Other specified problems related to primary support group
CPT/HCPCS: 36415; 80053; 80305; 80307; 82962; 85027; 86780; 87811; 93005; 93010

== ENCOUNTER 2024-04-01 13:31 | Inpatient (IN) | payer OTHER ==
[2024-04-01] MEDS ORDERED: hydrOXYzine PAMOATE 25 MG CAPSULE (FP) PO PRN (13:52)
[2024-04-01] MEDS ORDERED: NALOXONE (NARCAN) HCL 4 MG/0.1 ML SPRAY NS PRN (13:52)
[2024-04-01] MEDS ORDERED: BENZOCAINE/MENTHOL (CHLORASEPTIC ) LOZENGE MM PRN (13:52)
[2024-04-01] MEDS ORDERED: NICOTINE POLACRILEX 4 MG GUM BUC PRN (13:52)
[2024-04-01] MEDS ORDERED: IBUPROFEN 400 MG TABLET (FP) PO PRN (13:52)
[2024-04-01] MEDS ORDERED: BENZONATATE 200 MG CAPSULE PO PRN (13:52)
[2024-04-01] MEDS ORDERED: MAGNESIUM HYDROX 2400MG/30ML ORAL SUSPENSION 30 ML CUP PO PRN (13:52)
[2024-04-01] MEDS ORDERED: NICOTINE POLACRILEX 4 MG LOZENGE BC PRN (13:52)
[2024-04-01] MEDS ORDERED: POLYETHYLENE GLYCOL (HEALTHYLAX) 3350 17 GM PACKET PO PRN (13:52)
[2024-04-01] MEDS ORDERED: NALOXONE HCL 0.4 MG/ML VIAL IVPUSH PRN (13:52)
[2024-04-01] MEDS ORDERED: guaiFENesin 600 MG TABLET.ER (FP) PO PRN (13:52)
[2024-04-01] MEDS ORDERED: NICOTINE 7 MG/24 HOURS TOPICAL PATCH TD PRN (13:52)
[2024-04-01] MEDS: metFORMIN HCL 500 MG TABLET (FP) PO SCH (16:39)
[2024-04-01] MEDS: traZODone HCL 100 MG TABLET (FP) PO SCH (21:04)
[2024-04-01] MEDS: ATORVASTATIN CA 40 MG TABLET (FP) PO SCH (21:04)
[2024-04-01] MEDS: INSULIN (LEVEMIR) 100 UNITS/ML UNITS SQ SCH (21:04)
[2024-04-01] MEDS: THIAMINE 100 MG TABLET PO SCH (21:04)
[2024-04-01] MEDS: MELATONIN 5 MG TABLETS PO SCH (21:04)
[2024-04-02] MEDS: METHOCARBAMOL 500 MG TABLET PO PRN (05:53)
[2024-04-02] MEDS: LISINOPRIL 20 MG TABLET PO SCH (09:49)
[2024-04-02] MEDS: PANTOPRAZOLE 40 MG TABLET PO SCH (09:49)
[2024-04-02] MEDS: PRENATAL VITAMINS W/ FOLIC ACID TABLET (FP) PO SCH (09:49)
[2024-04-02] MEDS: SERTRALINE HCL 50 MG TABLET (FP) PO SCH (09:50)
[2024-04-02] MEDS: NALTREXONE HCL 50 MG TABLET PO SCH (09:50)
[2024-04-02] MEDS: THIAMINE 100 MG TABLET PO SCH (09:50)
[2024-04-02] MEDS: LOPERAMIDE HCL 2 MG CAPSULE PO PRN (11:54)
[2024-04-03] MEDS ORDERED: INSULIN ASPART SLIDING SCALE (NOVOLOG) 1 VIAL SQ SCH (22:33)
[2024-04-03] MEDS: INSULIN ASPART SLIDING SCALE (NOVOLOG) 1 VIAL SQ SCH (22:44)
[2024-04-04] MEDS ORDERED: INSULIN ASPART SLIDING SCALE (NOVOLOG) 1 VIAL SQ ONE ×2 (04:05→12:09)
[2024-04-04] MEDS ORDERED: INSULIN ASPART SLIDING SCALE (NOVOLOG) 1 VIAL SQ SCH (07:00)
[2024-04-04] MEDS: IBUPROFEN 600 MG TABLET (FP) PO PRN (09:33)
[2024-04-06] MEDS: MAG HYDROX/AL HYDROX/SIMETH 30 ML UNIT-DOSE CUP PO PRN (05:42)
[2024-04-08] MEDS ORDERED: INSULIN ASPART SLIDING SCALE (NOVOLOG) 1 VIAL SQ ONE (11:55)
[2024-04-09] MEDS ORDERED: NALTREXONE HCL 50 MG TABLET PO ONE (13:48)
[2024-04-10] MEDS ORDERED: INSULIN (LEVEMIR) 100 UNITS/ML UNITS SQ ONE (21:51)
[2024-04-10] MEDS ORDERED: INSULIN ASPART SLIDING SCALE (NOVOLOG) 1 VIAL SQ ONE (21:51)
[2024-04-11] MEDS ORDERED: NALTREXONE HCL 50 MG TABLET PO SCH (10:00)
[2024-04-14] MEDS ORDERED: INSULIN ASPART SLIDING SCALE (NOVOLOG) 1 VIAL SQ ONE (07:07)
[2024-04-16] MEDS: INSULIN (LEVEMIR) 100 UNITS/ML UNITS SQ SCH (21:06)
[2024-04-17] MEDS: INSULIN ASPART SLIDING SCALE (NOVOLOG) 1 VIAL SQ SCH (06:10)
[2024-04-20] MEDS ORDERED: INSULIN ASPART SLIDING SCALE (NOVOLOG) 1 VIAL SQ ONE ×2 (12:07→16:33)
[2024-04-22] MEDS: ACETAMINOPHEN 325 MG TABLET (FP) PO PRN (22:10)
[2024-04-26] MEDS: INSULIN ASPART SLIDING SCALE (NOVOLOG) 1 VIAL SQ SCH (06:14)
[2024-04-28 06:09] LABS: BENZODIAZEPINES, UR Negative ng/mL (Cutoff=200); CANNABINOIDS, URINE Negative ng/mL (Cutoff=20); METHADONE, URINE Negative ng/mL (Cutoff=300); OPIATES, UR Negative ng/mL (Cutoff=300); PHENCYCLIDINE, URINE Negative ng/mL (Cutoff=25)
[2024-04-28] MEDS: NALTREXONE MICROSPHERES (VIVITROL) 380 MG DISP.SYRIN IM ONE (09:16)
[2024-04-29 06:26] VITALS: TEMP 97.5
[2024-04-29 08:48] VITALS: BP 133/83; PULSE 73; RESP 18
== END 2024-04-29 09:37 | disposition home or self-care (01) | DRG 895 ==
LOC: YASAS 13:31 → Y3W 13:34
PROVIDERS: ADMIT Psychiatry & Neurology Pain Medicine; ATTEND Psychiatry & Neurology Pain Medicine
PROC: HZ42ZZZ Group Counseling for Substance Abuse Treatment, Cognitive-Behavioral (ICD-10-PCS; principal; 2024-04-01)
DX: F10.20 Alcohol dependence, uncomplicated (principal); F17.210 Nicotine dependence, cigarettes, uncomplicated; F10.282 Alcohol dependence with alcohol-induced sleep disorder; F10.24 Alcohol dependence with alcohol-induced mood disorder; F32.A Depression, unspecified; I10 Essential (primary) hypertension; E78.5 Hyperlipidemia, unspecified; K21.9 Gastro-esophageal reflux disease without esophagitis; E11.9 Type 2 diabetes mellitus without complications; Z79.84 Long term (current) use of oral hypoglycemic drugs; M19.041 Primary osteoarthritis, right hand; M19.042 Primary osteoarthritis, left hand; M06.9 Rheumatoid arthritis, unspecified
CPT/HCPCS: 36415; 80305; 80307; 82140; 82962; 86803; J2315

== ENCOUNTER 2025-04-07 12:05 | Inpatient (IN) | payer OTHER ==
[2025-04-07 12:38] VITALS: BMI 24.0
[2025-04-07] MEDS ORDERED: POLYETHYLENE GLYCOL (HEALTHYLAX) 3350 17 GM PACKET PO PRN (12:47)
[2025-04-07] MEDS ORDERED: IBUPROFEN 600 MG TABLET (FP) PO PRN (12:47)
[2025-04-07] MEDS ORDERED: MAGNESIUM HYDROX 2400MG/30ML ORAL SUSPENSION 30 ML CUP PO PRN (12:47)
[2025-04-07] MEDS ORDERED: ACETAMINOPHEN 325 MG TABLET (FP) PO PRN (12:47)
[2025-04-07] MEDS ORDERED: IBUPROFEN 400 MG TABLET (FP) PO PRN (12:47)
[2025-04-07] MEDS ORDERED: guaiFENesin 600 MG TABLET.ER (FP) PO PRN (12:47)
[2025-04-07] MEDS ORDERED: LOPERAMIDE HCL 2 MG CAPSULE PO PRN (12:47)
[2025-04-07] MEDS ORDERED: MAG HYDROX/AL HYDROX/SIMETH 30 ML UNIT-DOSE CUP PO PRN (12:47)
[2025-04-07] MEDS ORDERED: BISMUTH SUBSALICYLATE 524 MG/30 ML PO PRN (12:47)
[2025-04-07] MEDS ORDERED: ONDANSETRON *ODT* 4 MG TABLET SL PRN (12:47)
[2025-04-07] MEDS ORDERED: BENZONATATE 200 MG CAPSULE PO PRN (12:47)
[2025-04-07] MEDS ORDERED: NALOXONE (NARCAN) HCL 4 MG/0.1 ML SPRAY NS PRN (12:47)
[2025-04-07] MEDS ORDERED: BENZOCAINE/MENTHOL (CHLORASEPTIC ) LOZENGE MM PRN (12:47)
[2025-04-07] MEDS ORDERED: DICYCLOMINE HCL 10 MG CAPSULE PO PRN (12:47)
[2025-04-07] MEDS: hydrOXYzine PAMOATE 25 MG CAPSULE (FP) PO PRN (14:22)
[2025-04-07] MEDS: METHOCARBAMOL 500 MG TABLET PO PRN (14:23)
[2025-04-07] MEDS: NALTREXONE HCL 50 MG TABLET PO SCH (17:00)
[2025-04-07] MEDS: INSULIN (NOVOLOG) ASPART 100 UNITS/ML 10ML VIAL SQ SCH (17:11)
[2025-04-07] MEDS: THIAMINE 100 MG TABLET PO SCH (22:06)
[2025-04-07] MEDS: MELATONIN 5 MG TABLETS PO SCH (22:06)
[2025-04-07] MEDS: ATORVASTATIN CA 40 MG TABLET (FP) PO SCH (22:06)
[2025-04-07] MEDS: traZODone HCL 100 MG TABLET (FP) PO SCH (22:06)
[2025-04-08] MEDS: PRENATAL VITAMINS W/ FOLIC ACID TABLET (FP) PO SCH (10:25)
[2025-04-08] MEDS: PANTOPRAZOLE 40 MG TABLET PO SCH (10:26)
[2025-04-08] MEDS: LISINOPRIL 20 MG TABLET PO SCH (10:26)
[2025-04-08 12:00] LABS: MCHC 33.2 g/dl (32.3-36.5); MEAN CELL VOLUME 93.8 fl (79.0-92.2); MEAN PLT VOLUME 10.1 fl (9.4-12.4); RDW 12.4 % (12.2-16.4)
[2025-04-08 12:19] LABS: GLUCOSE,RANDOM 470 mg/dL (74-106)
[2025-04-08 12:20] LABS: TOT PROT 6.3 g/dl (6.4-8.2)
[2025-04-08 12:21] LABS: CO2 24 mmol/L (21-32)
[2025-04-08 12:22] LABS: ALK PHOS 171 U/L (40-150)
[2025-04-08 12:25] LABS: CREATININE 0.81 mg/dL (0.55-1.3); SGOT/AST 38 U/L (5-34); SGPT/ALT 14 U/L (0-55)
[2025-04-08 13:01] VITALS: RESP 16
[2025-04-08] MEDS: INSULIN (NOVOLOG) ASPART 100 UNITS/ML 10ML VIAL SQ SCH (17:08)
[2025-04-08] MEDS ORDERED: INSULIN ASPART SLIDING SCALE (NOVOLOG) 1 VIAL SQ ONE (17:08)
[2025-04-08] MEDS: INSULIN GLARGINE (LANTUS) 100 UNITS/ML UNITS SQ SCH (22:12)
[2025-04-09 09:14] VITALS: BP 96/71; PULSE 94; TEMP 97.8
[2025-04-09] MEDS ORDERED: INSULIN GLARGINE (LANTUS) 100 UNITS/ML UNITS SQ SCH (10:24)
[2025-04-09] MEDS: FERROUS SO4 325 MG TABLET (FP) PO SCH (11:54)
[2025-04-11] MEDS ORDERED: NALTREXONE MICROSPHERES (VIVITROL) 380 MG DISP.SYRIN IM ONE (10:00)
== END 2025-04-09 12:05 | disposition left against medical advice (07) | DRG 894 ==
LOC: YASAS 12:05 → SUATTDRO 12:05 → Y3N 13:42
PROVIDERS: ADMIT Family Medicine; ATTEND Allergy & Immunology
PROC: HZ2ZZZZ Detoxification Services for Substance Abuse Treatment (ICD-10-PCS; principal; 2025-04-07)
DX: F10.230 Alcohol dependence with withdrawal, uncomplicated (principal); F17.290 Nicotine dependence, other tobacco product, uncomplicated; F41.9 Anxiety disorder, unspecified; F32.9 Major depressive disorder, single episode, unspecified; D64.9 Anemia, unspecified; E78.5 Hyperlipidemia, unspecified; I10 Essential (primary) hypertension; K21.9 Gastro-esophageal reflux disease without esophagitis; E11.9 Type 2 diabetes mellitus without complications; Z79.84 Long term (current) use of oral hypoglycemic drugs; R26.89 Other abnormalities of gait and mobility
CPT/HCPCS: 36415; 80053; 80307; 82140; 82962; 83036; 85027; 86780; 93005; 93010